=== PATIENT | female | born 1970 | race Caucasian/White ===

== ENCOUNTER → 2017-02-19 | Day surgery (SDC) | payer OTHER ==
[~2017-02-19] VITALS: Ht 167.6 cm; Wt 64.9 kg
[~2017-02-19] MED LIST: LEVSIN TAB 00.125 MG SL; LOMOTIL 2.5-0.1 EACH PO; NORCO 5-325 TA1 EACH PO
== END | disposition home or self-care (01) ==
LOC: OR 06:49
PROVIDERS: Orthopaedic Surgery
PROC: 01N50ZZ Release Median Nerve, Open Approach (ICD-10-PCS; principal; 2017-02-19 11:15)
DX: G56.01 Carpal tunnel syndrome, right upper limb (principal); F17.210 Nicotine dependence, cigarettes, uncomplicated; Z91.013 Allergy to seafood; Z79.899 Other long term (current) drug therapy; Z90.49 Acquired absence of other specified parts of digestive tract; Z98.890 Other specified postprocedural states
CPT/HCPCS: 84703; J7030; J7120